=== PATIENT | female | born 1960 | race Caucasian/White ===

== ENCOUNTER 2020-11-02 09:08 | Day surgery (SDC) | payer OTHER ==
[2020-10-29 13:03] VITALS: BMI 20.7
[~2020-11-02 09:08] MED LIST: LACTATED RINGERS 1,000 ML IV SCH
[2020-11-02 09:29] VITALS: TEMP 98.4
[2020-11-02] MEDS ORDERED: LIDOCAINE 1% (10MG/ML) FOR IV START INTRADERMA ONE (09:29)
[2020-11-02] MEDS ORDERED: PROPOFOL 10 MG/ML 20 ML VIAL IV ONE (10:01)
--- NOTE | 2020-11-02 10:05 | P.GSHP ---
History of Present Illness H&P Date: 11/02/20 Chief Complaint: Colon cancer screening Patient here today for colonoscopy. No bowel complaints. She has not had a colonoscopy previously. No family history of colon cancer in first-degree relatives. She thinks her grandparent may have had colon cancer. Past Medical History Past Medical History: Hyperlipidemia History of Any Multi-Drug Resistant Organisms: None Reported Past Surgical History: Breast Surgery, Hysterectomy, Tonsillectomy Additional Past Surgical History / Comment(s): BILATERAL BREAST AUGMENTATION , RIGHT LEG- PINS AND JERI,SCREWS , RIGHT LEG -IRRITATING METAL REMOVED Past Anesthesia/Blood Transfusion Reactions: No Reported Reaction Smoking Status: Current every day smoker - Past Family History Mother Family Medical History: Cancer Additional Family Medical History / Comment(s): ESOPHAGEAL CANCER Father Family Medical History: Cancer Additional Family Medical History / Comment(s): LIVER CANCER Medications and Allergies Home Medications Medication Instructions Recorded Confirmed Type Atorvastatin [Lipitor] 80 mg PO HS 10/29/20 10/29/20 History Ergocalciferol (Vitamin D2) 1,250 mcg PO WE 10/29/20 10/29/20 History [Vitamin D2 (50,000 Iu)] Mirtazapine [Remeron] 15 mg PO HS 10/29/20 10/29/20 History Allergies Allergy/AdvReac Type Severity Reaction Status Date / Time No Known Allergies Allergy Verified 11/02/20 09:25 Surgical - Exam Vital Signs Temp Pulse Resp BP Pulse Ox 98.4 F 91 16 144/73 97 11/02/20 09:28 11/02/20 09:28 11/02/20 09:28 11/02/20 09:28 11/02/20 09:28 Physical exam: General: Well-developed, well-nourished HEENT: Normocephalic, sclerae nonicteric Abdomen: Nontender, nondistended Extremities: No edema Neuro: Alert and oriented Assessment and Plan (1) Colon cancer screening Narrative/Plan: Will proceed with colonoscopy Current Visit: Yes Status: Acute Code(s): Z12.11 - ENCOUNTER FOR SCREENING FOR MALIGNANT NEOPLASM OF COLON SNOMED Code(s): 946823831
--- NOTE | 2020-11-02 10:25 | P.PCN ---
Date of Procedure: 11/02/20 Procedure(s) Performed: PREOPERATIVE DIAGNOSIS: Colon cancer screening POSTOPERATIVE DIAGNOSIS: Normal exam PROCEDURE: Colonoscopy ANESTHESIA: MAC SURGEON: Danis Mojica M.D. SPECIMENS: Normal exam ENDOSCOPIC PROCEDURE: The patient was placed on the endoscopy table in the left decubitus position. The Olympus colonoscope was inserted into the anus and passed under direct visualization to the base of the cecum. The appendiceal orifice was visualized. From that point the scope was slowly withdrawn i nspecting all surfaces carefully. There were no neoplastic inflammatory or polypoid lesions throughout the cecum, ascending, transverse, descending, sigmoid and rectum. There was no visible diverticulosis noted. Digital rectal examination was normal. The patient was taken to the recovery room in stable condition per anesthesia guidelines. RECOMMENDATIONS: Resume diet. Follow-up colonoscopy 10 years.
[2020-11-02 10:43] VITALS: BP 122/84; PULSE 77; RESP 16
== END 2020-11-02 11:09 | disposition home or self-care (01) ==
LOC: ORWHC2ENDO 09:08
PROVIDERS: ATTEND Surgery
DX: Z12.11 Encounter for screening for malignant neoplasm of colon (principal); E78.5 Hyperlipidemia, unspecified; F17.200 Nicotine dependence, unspecified, uncomplicated; Z90.710 Acquired absence of both cervix and uterus; Z90.89 Acquired absence of other organs; Z98.890 Other specified postprocedural states; Z80.0 Family history of malignant neoplasm of digestive organs; Z79.899 Other long term (current) drug therapy
CPT/HCPCS: J2704; G0121

== ENCOUNTER 2021-01-03 19:26 | Emergency (ER) | payer OTHER ==
[2021-01-03 19:34] VITALS: TEMP 99.1
[2021-01-03] MEDS ORDERED: MORPHINE SULFATE 2 MG/ML SYRINGE IVP STA (19:40)
[2021-01-03] MEDS ORDERED: ALBUTEROL NEBULIZED 2.5 MG/3 ML INHALATION STA (19:40)
[2021-01-03] MEDS ORDERED: IPRATROPIUM 0.5 MG/2.5 ML NEBU INHALATION STA (19:40)
[2021-01-03] MEDS ORDERED: SODIUM CHLORIDE 0.9% 500 ML 500 ML IV ONE (19:40)
[2021-01-03] MEDS ORDERED: methylPREDNISolone SOD SUCCI 125 MG/2 ML VIAL IV STA (19:40)
--- NOTE | 2021-01-03 19:58 | ED ---
General Adult HPI - General Chief complaint: Shortness of Breath Stated complaint: Coughing, Diff Breathing Time Seen by Provider: 01/03/21 19:35 Source: patient, RN notes reviewed, old records reviewed Mode of arrival: wheelchair Limitations: no limitations - History of Present Illness Initial comments: 60-year-old female with approximately one month of cough and mild dyspnea. She had been prescribed antibiotics and an albuterol inhaler by her primary care physician. Symptoms have continued to worsen. She denies fever. She denies a central radiating chest pain. No leg swelling. No history of CAD, no history of COPD. She is a current smoker although she states she has been cutting back. - Related Data Home Medications Medication Instructions Recorded Confirmed Atorvastatin [Lipitor] 80 mg PO HS 10/29/20 10/29/20 Ergocalciferol (Vitamin D2) 1,250 mcg PO WE 10/29/20 10/29/20 [Vitamin D2 (50,000 Iu)] Mirtazapine [Remeron] 15 mg PO HS 10/29/20 10/29/20 Previous Rx's Medication Instructions Recorded Promethazine HCl/Codeine 5 ml PO Q6H PRN 3 Days #120 ml 01/03/21 [Promethazine-Codeine Syrup] predniSONE 50 mg PO DAILY #5 tab 01/03/21 Allergies Allergy/AdvReac Type Severity Reaction Status Date / Time No Known Allergies Allergy Verified 01/03/21 19:34 Review of Systems ROS Statement: Those systems with pertinent positive or pertinent negative responses have been documented in the HPI. ROS Other: All systems not noted in ROS Statement are negative. Past Medical History Past Medical History: Hyperlipidemia History of Any Multi-Drug Resistant Organisms: None Reported Past Surgical History: Breast Surgery, Hysterectomy, Tonsillectomy Additional Past Surgical History / Comment(s): BILATERAL BREAST AUGMENTATION , RIGHT LEG- PINS AND JERI,SCREWS , RIGHT LEG -IRRITATING METAL REMOVED Past Anesthesia/Blood Transfusion Reactions: No Reported Reaction Past Psychological History: Anxiety, Depression Smoking Status: Current every day smoker Past Alcohol Use History: None Reported Past Drug Use History: None Reported - Past Family History Mother Family Medical History: Cancer Additional Family Medical History / Comment(s): ESOPHAGEAL CANCER Father Family Medical History: Cancer Additional Family Medical History / Comment(s): LIVER CANCER General Exam Limitations: no limitations General appearance: alert, in no apparent distress Head exam: Present: atraumatic, normocephalic Eye exam: Present: normal appearance, PERRL ENT exam: Present: normal exam Neck exam: Present: normal inspection. Absent: tenderness, meningismus Respiratory exam: Present: wheezes, other (Bronchospastic cough) Cardiovascular Exam: Present: regular rate, normal rhythm GI/Abdominal exam: Present: soft. Absent: distended, tenderness, guarding Extremities exam: Present: normal inspection, normal capillary refill. Absent: pedal edema, calf tenderness Neurological exam: Present: alert, oriented X3, CN II-XII intact. Absent: motor sensory deficit Psychiatric exam: Present: normal affect, normal mood Skin exam: Present: warm, dry, intact. Absent: cyanosis, diaphoretic Course Vital Signs 01/03/21 01/03/21 01/03/21 19:31 21:02 21:17 Temperature 99.1 F Pulse Rate 106 H 80 84 Respiratory 20 18 18 Rate Blood Pressure 112/77 O2 Sat by Pulse 98 Oximetry Medical Decision Making - Medical Decision Making 60-year-old female history of tobacco use, presenting with cough. Patient has a bronchospastic cough and wheezing throughout. Chest x-ray is clear. She has normal laboratory testing including normal CBC, normal CMP. She does have a persistent cough, however hemodynamics are stable. I offered observation for treatment of chronic bronchitis and likely COPD patient declines. She prefers outpatient follow-up. She's given a short course of steroids. She has an albuterol inhaler. She's given a promethazine with codeine. - Lab Data Result diagrams: 01/03/21 19:47 01/03/21 19:47 Lab Results 01/03/21 01/03/21 01/03/21 Range/Units 19:47 19:47 19:47 WBC 8.5 (3.8-10.6) k/uL RBC 4.50 (3.80-5.40) m/uL Hgb 13.6 (11.4-16.0) gm/dL Hct 39.3 (34.0-46.0) % MCV 87.3 (80.0-100.0) fL MCH 30.2 (25.0-35.0) pg MCHC 34.6 (31.0-37.0) g/dL RDW 12.7 (11.5-15.5) % Plt Count 205 (150-450) k/uL MPV 7.7 Neutrophils % 81 % Lymphocytes % 11 % Monocytes % 5 % Eosinophils % 1 % Basophils % 1 % Neutrophils # 6.9 (1.3-7.7) k/uL Lymphocytes # 0.9 L (1.0-4.8) k/uL Monocytes # 0.4 (0-1.0) k/uL Eosinophils # 0.1 (0-0.7) k/uL Basophils # 0.1 (0-0.2) k/uL PT 9.8 (9.0-12.0) sec INR 0.9 (<1.2) APTT 21.6 L (22.0-30.0) sec Sodium 139 (137-145) mmol/L Potassium 3.7 (3.5-5.1) mmol/L Chloride 104 (98-107) mmol/L Carbon Dioxide 24 (22-30) mmol/L Anion Gap 11 mmol/L BUN 9 (7-17) mg/dL Creatinine 0.95 (0.52-1.04) mg/dL Est GFR (CKD-EPI)AfAm 76 (>60 ml/min/1.73 sqM) Est GFR (CKD-EPI)NonAf 66 (>60 ml/min/1.73 sqM) Glucose 117 H (74-99) mg/dL Calcium 9.5 (8.4-10.2) mg/dL Magnesium 2.0 (1.6-2.3) mg/dL Total Bilirubin 0.7 (0.2-1.3) mg/dL AST 31 (14-36) U/L ALT 14 (4-34) U/L Alkaline Phosphatase 177 H (38-126) U/L Troponin I (0.000-0.034) ng/mL Total Protein 7.4 (6.3-8.2) g/dL Albumin 4.7 (3.5-5.0) g/dL 01/03/21 Range/Units 19:47 WBC (3.8-10.6) k/uL RBC (3.80-5.40) m/uL Hgb (11.4-16.0) gm/dL Hct (34.0-46.0) % MCV (80.0-100.0) fL MCH (25.0-35.0) pg MCHC (31.0-37.0) g/dL RDW (11.5-15.5) % Plt Count (150-450) k/uL MPV Neutrophils % % Lymphocytes % % Monocytes % % Eosinophils % % Basophils % % Neutrophils # (1.3-7.7) k/uL Lymphocytes # (1.0-4.8) k/uL Monocytes # (0-1.0) k/uL Eosinophils # (0-0.7) k/uL Basophils # (0-0.2) k/uL PT (9.0-12.0) sec INR (<1.2) APTT (22.0-30.0) sec Sodium (137-145) mmol/L Potassium (3.5-5.1) mmol/L Chloride (98-107) mmol/L Carbon Dioxide (22-30) mmol/L Anion Gap mmol/L BUN (7-17) mg/dL Creatinine (0.52-1.04) mg/dL Est GFR (CKD-EPI)AfAm (>60 ml/min/1.73 sqM) Est GFR (CKD-EPI)NonAf (>60 ml/min/1.73 sqM) Glucose (74-99) mg/dL Calcium (8.4-10.2) mg/dL Magnesium (1.6-2.3) mg/dL Total Bilirubin (0.2-1.3) mg/dL AST (14-36) U/L ALT (4-34) U/L Alkaline Phosphatase (38-126) U/L Troponin I <0.012 (0.000-0.034) ng/mL Total Protein (6.3-8.2) g/dL Albumin (3.5-5.0) g/dL Disposition Clinical Impression: Acute bronchitis Disposition: HOME SELF-CARE Condition: Good Instructions (If sedation given, give patient instructions): Acute Bronchitis (ED) Prescriptions: predniSONE 50 mg PO DAILY #5 tab Promethazine HCl/Codeine [Promethazine-Codeine Syrup] 5 ml PO Q6H PRN 3 Days #120 ml PRN Reason: Cough Is patient prescribed a controlled substance at d/c from ED?: No Referrals: Enzo Kimbrough MD [Primary Care Provider] - 1-2 days Time of Disposition: 21:29
[2021-01-03 20:02] LABS: Basophils # (A) 0.1 k/uL (0-0.2); Basophils % (A) 1 %; Eosinophils # (A) 0.1 k/uL (0-0.7); Eosinophils % (A) 1 %; HCT 39.3 % (34.0-46.0); HGB 13.6 gm/dL (11.4-16.0); Lymphocytes # (A) 0.9 k/uL (1.0-4.8); Lymphocytes % (A) 11 %; MCH 30.2 pg (25.0-35.0); MCHC 34.6 g/dL (31.0-37.0); MCV 87.3 fL (80.0-100.0); Mean Platelet Volume 7.7; Monocytes # (A) 0.4 k/uL (0-1.0); Monocytes % (A) 5 %; Neutrophils # (A) 6.9 k/uL (1.3-7.7); Neutrophils % (A) 81 %; Platelet Count 205 k/uL (150-450); RDW 12.7 % (11.5-15.5); WBC 8.5 k/uL (3.8-10.6)
[2021-01-03 20:17] LABS: Albumin 4.7 g/dL (3.5-5.0); Calcium 9.5 mg/dL (8.4-10.2); Potassium 3.7 mmol/L (3.5-5.1); Total Bilirubin 0.7 mg/dL (0.2-1.3); Total Protein 7.4 g/dL (6.3-8.2)
--- NOTE | 2021-01-03 20:20 | XR ---
EXAMINATION TYPE: XR chest 2V DATE OF EXAM: 01/03/2021 COMPARISON: NONE HISTORY: Cough TECHNIQUE: 2 views FINDINGS: There is no heart failure nor confluent pneumonic infiltrate. Costophrenic angles are clear . There are no hilar masses. IMPRESSION: No active cardiopulmonary disease. Normal heart.
[2021-01-03 20:21] LABS: INR 0.9 (<1.2); Prothrombin Time 9.8 sec (9.0-12.0)
[2021-01-03 20:29] LABS: Partial Thromboplastin Time 21.6 sec (22.0-30.0)
[2021-01-03] MEDS ORDERED: ACET/COD 300 MG/30 MG STARTER PACK 6 TAB BTL PO STA (21:32)
[2021-01-03 21:41] VITALS: BP 142/80; PULSE 78; RESP 20
== END 2021-01-03 21:40 | disposition home or self-care (01) ==
LOC: EC 19:26
DX: J20.9 Acute bronchitis, unspecified (principal); E78.5 Hyperlipidemia, unspecified; F32.9 Major depressive disorder, single episode, unspecified; F41.9 Anxiety disorder, unspecified; F17.200 Nicotine dependence, unspecified, uncomplicated
CPT/HCPCS: 99285 ×2; 96374 ×2; 96375 ×2; 36415; 94640; 80053; 83735; 84484; 85025; 85610; 85730; 71046; J2930; J2270

== ENCOUNTER 2021-02-16 23:29 | Emergency (ER) | payer OTHER ==
[2021-02-16 23:56] VITALS: BP 138/87; PULSE 78; RESP 18; TEMP 98.5
[2021-02-17] MEDS ORDERED: ACET/COD 300 MG/30 MG STARTER PACK 6 TAB BTL PO STA (01:33)
[2021-02-17] MEDS ORDERED: ORPHENADRINE 30 MG/ML 2 ML VIAL IM STA (01:33)
[2021-02-17] MEDS ORDERED: KETOROLAC 15 MG/ML 1 ML VIAL IM STA (01:33)
--- NOTE | 2021-02-17 01:35 | ED ---
Back Pain HPI - General Chief Complaint: Back Pain/Injury Stated Complaint: back pain Time Seen by Provider: 02/17/21 00:35 Source: patient - History of Present Illness Initial Comments: 60-year-old female patient presents to the emergency department today for evaluation of right mid back pain. Patient states she's had the pain for the last month. States it feels like her back is spasming. States that she has seen her primary care physician and did receive a short course of [place] which did seem to help all she was taking it. States she started seeing a chiropractor earlier today and did have relief for a short period of time but then worsened again. Patient states she is unable to sleep tonight so she came in for further evaluation. States she did take [id number] ibuprofen without relief. She denies any radiation of the pain down her legs. Denies any numbness or tingling. Denies saddle anesthesia or loss of bowel or bladder control. Denies any hematuria, dysuria, urinary frequency, urinary urgency. States her pain is consistent with her usual back pain and has no new symptoms. - Related Data Home Medications Medication Instructions Recorded Confirmed Atorvastatin [Lipitor] 80 mg PO HS 10/29/20 10/29/20 Ergocalciferol (Vitamin D2) 1,250 mcg PO WE 10/29/20 10/29/20 [Vitamin D2 (50,000 Iu)] Mirtazapine [Remeron] 15 mg PO HS 10/29/20 10/29/20 Previous Rx's Medication Instructions Recorded Promethazine HCl/Codeine 5 ml PO Q6H PRN 3 Days #120 ml 01/03/21 [Promethazine-Codeine Syrup] predniSONE 50 mg PO DAILY #5 tab 01/03/21 Lidocaine 5% Patch [Lidoderm] 1 patch TOPICAL DAILY #30 patch 02/17/21 Naproxen [EC-Naprosyn] 500 mg PO BID PRN #30 tablet. 02/17/21 Orphenadrine [Norflex] 100 mg PO Q12H PRN #10 tablet.er 02/17/21 Allergies Allergy/AdvReac Type Severity Reaction Status Date / Time No Known Allergies Allergy Verified 02/16/21 23:56 Review of Systems ROS Statement: Those systems with pertinent positive or pertinent negative responses have been documented in the HPI. ROS Other: All systems not noted in ROS Statement are negative. Past Medical History Past Medical History: Hyperlipidemia History of Any Multi-Drug Resistant Organisms: None Reported Past Surgical History: Breast Surgery, Hysterectomy, Tonsillectomy Additional Past Surgical History / Comment(s): BILATERAL BREAST AUGMENTATION , RIGHT LEG- PINS AND JERI,SCREWS , RIGHT LEG -IRRITATING METAL REMOVED Past Anesthesia/Blood Transfusion Reactions: No Reported Reaction Past Psychological History: Anxiety, Depression Smoking Status: Current every day smoker Past Alcohol Use History: None Reported Past Drug Use History: None Reported - Past Family History Mother Family Medical History: Cancer Additional Family Medical History / Comment(s): ESOPHAGEAL CANCER Father Family Medical History: Cancer Additional Family Medical History / Comment(s): LIVER CANCER General Exam General appearance: alert, in no apparent distress, other (This is a well- developed, well-nourished adult female patient in no acute distress. Vital signs upon presentation are temperature 98.5F, pulse 78, respirations 18, blood pressure 138/87, pulse ox 99% on room air.) Respiratory exam: Present: normal lung sounds bilaterally. Absent: respiratory distress, wheezes, rales, rhonchi, stridor Cardiovascular Exam: Present: regular rate, normal rhythm, normal heart sounds. Absent: systolic murmur, diastolic murmur, rubs, gallop, clicks GI/Abdominal exam: Present: soft, normal bowel sounds. Absent: distended, tenderness, guarding, rebound, rigid Extremities exam: Present: normal inspection, full ROM, normal capillary refill, other (Skin to the lower extremities is pink, warm, dry. Cap refill less than 3 seconds. Pedal and posttibial pulses are 2+ and equal bilaterally.). Absent: tenderness, pedal edema, joint swelling, calf tenderness Back exam: Present: normal inspection, muscle spasm (Right lower thoracic), paraspinal tenderness (Right lower thoracic) Neurological exam: Present: alert, oriented X3, CN II-XII intact Psychiatric exam: Present: normal affect, normal mood Skin exam: Present: warm, dry, intact, normal color. Absent: rash Course Vital Signs 02/16/21 23:51 Temperature 98.5 F Pulse Rate 78 Respiratory 18 Rate Blood Pressure 138/87 O2 Sat by Pulse 99 Oximetry Medical Decision Making - Medical Decision Making 60-year-old female patient presents to the emergency department today for evaluation of right mid back pain. Physical examination did reveal right lower thoracic paraspinal tenderness consistent with muscle spasm. She'll be started on Norflex and naproxen. Given Lidoderm patch. She'll be discharged follow-up with her primary care physician for recheck in 1-2 days. She is urged to discuss physical therapy referral. Return parameters discussed in detail. She verbalizes understanding and agrees with this plan. My attending is Dr. Mendez. Disposition Clinical Impression: Muscle spasm, Back pain Disposition: HOME SELF-CARE Condition: Good Instructions (If sedation given, give patient instructions): Muscle Spasm (ED), Back Pain (ED) Additional Instructions: Take medications as directed. Apply warm moist heat over the area 20 minutes at a time at least 4 times daily. Consider physical therapy, getting referral from your primary care physician. Return to the emergency department for any new, worsening, or concerning symptoms. Prescriptions: Naproxen [EC-Naprosyn] 500 mg PO BID PRN #30 tablet. PRN Reason: Pain Lidocaine 5% Patch [Lidoderm] 1 patch TOPICAL DAILY #30 patch Orphenadrine [Norflex] 100 mg PO Q12H PRN #10 tablet.er PRN Reason: Back pain Is patient prescribed a controlled substance at d/c from ED?: No Referrals: Enzo Kimbrough MD [Primary Care Provider] - 1-2 days Time of Disposition: 01:35
== END 2021-02-17 01:51 | disposition home or self-care (01) ==
LOC: EC 23:29
DX: M62.830 Muscle spasm of back (principal); M54.9 Dorsalgia, unspecified; F17.200 Nicotine dependence, unspecified, uncomplicated; E78.5 Hyperlipidemia, unspecified; Z79.899 Other long term (current) drug therapy
CPT/HCPCS: 99283; 96372; J2360; J1885

== ENCOUNTER → 2021-06-30 | Outpatient (CLI) | payer OTHER ==
--- NOTE | 2021-06-30 08:27 | CT ---
EXAMINATION TYPE: CT chest wo/w con DATE OF EXAM: 06/30/2021 COMPARISON: None HISTORY: Chronic cough, Wheezing CT DLP: 628 mGycm Automated exposure control for dose reduction was used. CONTRAST: CT scan of the chest is performed without and with IV Contrast, patient injected with 100 ml mL of Is ovue 300. FINDINGS: LUNGS: Groundglass density right upper lobe and left lower lobe may reflect inflammatory/postinflamma tory change. No focal consolidation. No pleural effusion. No evidence for volume loss. MEDIASTINUM: There are no greater than 1 cm hilar or mediastinal lymph nodes. No pericardial effusi on is seen. Thoracic aorta is of normal caliber. The heart is not enlarged. UPPER ABDOMEN: No significant abnormality appreciated. OTHER: No additional significant abnormality is seen. IMPRESSION: Groundglass density right upper lobe and left lower lobe may reflect inflammatory/postinflammatory ch rafael. No focal consolidation.
== END | disposition home or self-care (01) ==
LOC: RADCTMAIN 07:23
PROVIDERS: ATTEND Family Medicine
DX: R05.3 Chronic cough (principal)
CPT/HCPCS: 71270; Q9967

== ENCOUNTER → 2022-02-02 | Outpatient (CLI) | payer OTHER ==
--- NOTE | 2022-02-07 08:09 | MM ---
Reason for Exam: Screening (asymptomatic). Last mammogram was performed 1 year(s) and 6 month(s) ago. Patient History: 2000, Bilateral Implants. Risk Values: Opal 5 year model risk: 0.9%. NCI Lifetime model risk: 4.9%. Tissue Density: The breast tissue is extremely dense which could obscure a lesion on mammography. Findings: Analyzed By CAD. There is no suspicious group of microcalcifications or new suspicious mass in either breast. Bilateral saline implants are intact. Overall Assessment: Benign, BI-RAD 2 Management: Screening Mammogram of both breasts in 1 year. A clinical breast exam by your physician is recommended on an annual basis and results should be correlated with mammographic findings. Electronically signed and approved by: Louis Gallegos M.D. Radiologis
== END | disposition home or self-care (01) ==
LOC: RADMAMWWP 08:10
PROVIDERS: ATTEND Family Medicine
DX: Z12.31 Encounter for screening mammogram for malignant neoplasm of breast (principal)
CPT/HCPCS: 77067

== ENCOUNTER → 2023-08-06 | Outpatient (CLI) | payer OTHER ==
--- NOTE | 2023-08-07 08:48 | MM ---
Reason for Exam: Screening (asymptomatic). Last mammogram was performed 1 year(s) and 6 month(s) ago. Patient History: Menarche at age 14. First Full-Term at age 29. Left ovary removed at age 39. Right ovary removed at age 39. Hysterectomy at age 39. Patient has history of breast feeding. Estrogen and Progesterone for 6 months. 2000, Bilateral Implants. Risk Values: Opal 5 year model risk: 1.6%. NCI Lifetime model risk: 7.9%. Prior Study Comparison: 08/27/2020 Bilateral MG screening mammo implant/CAD, [facility]. 02/02/2022 Bilateral MG screening mammo implant/CAD, [facility]. Tissue Density: The breast tissue is extremely dense which could obscure a lesion on mammography. Findings: Analyzed By CAD. There is a loosely grouped calcifications in the upper outer aspect left breast. No dominant mass or architectural distortion. Bilateral breast implants surgery. Stable benign-appearing calcifications bilaterally. Overall Assessment: Incomplete: need additional imaging evaluation, BI-RAD 0 Management: Special View Mammogram of the left breast. . Patient should continue monthly self-breast exams. A clinical breast exam by your physician is recommended on an annual basis. This exam should not preclude additional follow-up of suspicious palpable abnormalities. Note on Opal scores and lifetime risk: 1. A Opal score greater than 3% is considered moderate risk. If this is the case, consider specialist referral to assess eligibility for a risk reducing agent. 2. If overall lifetime risk for the development of breast cancer is 20% or higher, the patient may qualify for future screening with alternating mammogram and breast MRI. Electronically signed and approved by: Shamar Herron M.D. Radiologis
== END | disposition home or self-care (01) ==
LOC: RADMAMWWP 09:45
PROVIDERS: ATTEND Family Medicine
DX: Z12.31 Encounter for screening mammogram for malignant neoplasm of breast (principal)
CPT/HCPCS: 77067

== ENCOUNTER → 2023-08-13 | Outpatient (CLI) | payer OTHER ==
--- NOTE | 2023-08-13 14:09 | MM ---
Reason for Exam: Additional evaluation requested from abnormal screening. Last screening mammogram was performed less than 1 month ago. Patient History: Menarche at age 14. First Full-Term at age 29. Left ovary removed at age 39. Right ovary removed at age 39. Hysterectomy at age 39. Postmenopausal. Patient has history of breast feeding. Estrogen and Progesterone for 6 months. 2000, Bilateral Implants. Risk Values: Opal 5 year model risk: 1.6%. NCI Lifetime model risk: 7.9%. Prior Study Comparison: 08/27/2020 Bilateral MG screening mammo implant/CAD, [facility]. 02/02/2022 Bilateral MG screening mammo implant/CAD, [facility]. 08/06/2023 Bilateral MG screening mammo implant/CAD, [facility]. Tissue Density: Left: The breast tissue is extremely dense which could obscure a lesion on mammography. Findings: Analyzed By CAD. There are small grouped heterogeneous calcifications at the 3:00 position left breast middle depth. These are indeterminate. Needle localization with excision can be performed as these would not be amenable to stereotactic biopsy. Some benign milk of calcium is present in the upper outer quadrant. Overall Assessment: Suspicious, BI-RAD 4 Management: Needle Localization of the left breast. Surgical Consultation of the left breast. Electronically signed and approved by: oHda Bliss M.D. Radiologist
== END | disposition home or self-care (01) ==
LOC: RADMAMWWP 12:58
PROVIDERS: ATTEND Family Medicine
DX: R92.342 Mammographic extreme density, left breast (principal); R92.1 Mammographic calcification found on diagnostic imaging of breast; Z78.0 Asymptomatic menopausal state; Z98.82 Breast implant status
CPT/HCPCS: 77061; 77065

== ENCOUNTER 2023-09-10 06:12 | Day surgery (SDC) | payer OTHER ==
[2023-09-05 09:53] VITALS: BMI 18.3
[2023-09-10] MEDS ORDERED: LIDOCAINE 1% (10MG/ML) FOR IV START INTRADERMA PRN (07:31)
[2023-09-10] MEDS ORDERED: HYDROmorphone 0.5 MG/0.5 ML SYRINGE IVP PRN (07:31)
[2023-09-10] MEDS ORDERED: MIDAZOLAM 2 MG/2 ML VIAL IV PRN (07:31)
[2023-09-10] MEDS: ALPRAZolam 0.5 MG TAB ONE (07:32)
[2023-09-10] MEDS: LACTATED RINGERS 1,000 ML IV SCH (07:32)
[2023-09-10] MEDS ORDERED: ACETAMINOPHEN TAB 500 MG TAB ONE ×2 (07:33→09:00)
[2023-09-10] MEDS: LIDOCAINE 1% INJ 10MG/ML (20 ML MDV) SQ ONE (08:21)
[2023-09-10] MEDS: ONDANSETRON 4 MG/2 ML VIAL IVP ONE (08:52)
[2023-09-10] MEDS: DEXAMETHASONE SOD PHOSPHATE 4 MG/ML 1 ML VIAL IV ONE (08:53)
[2023-09-10] MEDS: HEPARIN SODIUM,PORCINE 5,000 UNIT/ML 1 ML VIAL SQ ONE (09:04)
[2023-09-10] MEDS: ACETAMINOPHEN TAB 500 MG TAB PO ONE (09:05)
[2023-09-10] MEDS ORDERED: PROPOFOL 10 MG/ML 20 ML VIAL IV ONE (09:17)
[2023-09-10] MEDS ORDERED: PHENYLEPHRINE 10 MG/ML VIAL ONE (09:17)
[2023-09-10] MEDS ORDERED: LIDOCAINE 1% INJ 10MG/ML (20 ML MDV) ONE (09:17)
[2023-09-10] MEDS ORDERED: ePHEDrine 50 MG/ML 1 ML VIAL ONE (09:17)
[2023-09-10] MEDS: BUPIVACAINE (PF) 0.25% 30 ML VIAL SQ ONE (09:43)
[2023-09-10] MEDS ORDERED: NALOXONE 0.4 MG/ML 1 ML VIAL IV PRN (10:16)
[2023-09-10] MEDS ORDERED: HYDROcodone/APAP 5-325MG 1 EACH TAB PO PRN (10:16)
--- NOTE | 2023-09-10 10:18 | P.OP ---
Date of Procedure: 09/10/23 Procedure(s) Performed: PREOPERATIVE DIAGNOSIS: Abnormal left mammogram POSTOPERATIVE DIAGNOSIS: Same PROCEDURE: Left breast wire localization biopsy SURGEON: Galina EBL: Minimal ANESTHESIA: General plus local COMPLICATIONS: None OPERATIVE PROCEDURE: Patient was placed on the operating room table in the supi ne position. The patient's breast was prepped and draped in usual sterile fashion. A curvilinear incision was made adjacent to the areola laterally. The wire was then brought out through this incision.. I followed the wire down into the breast tissue. The breast tissue around the tip of the wire was fully excised using electrocautery. The specimen was sent for specimen radiogram. The clip was present within the specimen. The subcutaneous tissues were inspected. No bleeding was seen. The subcutaneous tissues were closed using 3- 0 Vicryl sutures. The skin was closed using a running 4-0 Monocryl stitch. Skin glue and sterile dressings were applied. DISPOSITION: Stable to recovery room
[2023-09-10 10:36] VITALS: TEMP 98.2
[2023-09-10 11:11] VITALS: RESP 16
[2023-09-10 11:45] VITALS: BP 102/62; PULSE 79
--- NOTE | 2023-09-17 13:35 | MM ---
Risk Values: Opal 5 year model risk: 1.6%. NCI Lifetime model risk: 7.9%. Pathology Description: Location: lower outer quadrant, middle. Approach: Lateral to Medial Needle Type: 7 cm Kopan patient has bilat saline implants The procedure of needle localization with wire placement and than surgical excision was explained to the patient. Benefits, alternatives, and risks were discussed. An informed consent was then obtained. The small grouped calcifications 3 to 4:00 position left breast are identified and targeted for needle localization. Particular care is made given the patient's underlying saline implant. The shortest pathway for procedure was chosen. Shortest pathway was a lateral approach. The overlying skin was prepped and draped in usual sterile fashion. Lidocaine was used as anesthetic into the skin and subcutaneous tissue up to the level of area of concern. A 7 cm Kopan's needle was used. It was placed via a lateral approach under mammographic guidance. Subsequent 90 degrees mammogram show the needle to be in satisfactory position relative to the targeted area. At this point, wire was placed and the needle was withdrawn. The wire was fixed to patient's skin. Images were marked for surgeon. Care was taken to preserve the patient's underlying saline implant. The patient tolerated the procedure well without any immediate complication. The patient was kept in the radiology department for short stay after the procedure and then taken to surgery for surgical excision. Targeted calcifications and wire are identified in specimen mammogram. The patient was kept in hospital for short stay after the procedure and then discharged home in stable condition. IMPRESSION: Successful, uncomplicated needle localization with wire placement and surgical excision of suspicious group of calcifications in the 3 to 4:00 position left breast, full pathology results to follow. Pathology Results: Result: Benign, Fibrocystic change. LEFT BREAST, NEEDLE LOCALIZATION EXCISION: Benign breast with fibrocystic changes including dense stromal fibrosis. Overall Assessment: Benign Management: Diagnostic Mammogram of the left breast in 6 months. Electronically signed and approved by: Hoda Bliss M.D. Radiologist
== END 2023-09-10 11:41 | disposition home or self-care (01) ==
LOC: OR 06:12
PROVIDERS: ATTEND Surgery
DX: N60.12 Diffuse cystic mastopathy of left breast (principal)
CPT/HCPCS: 88305; 76098; 19281; C1819; J1644; J1100; J2405; J0690; J2001; J2704; J2371; J0665

== ENCOUNTER → 2023-09-28 | Outpatient (CLI) | payer OTHER ==
--- NOTE | 2023-10-01 11:08 | CT ---
EXAMINATION TYPE: CT abdomen wo/w con CT DLP: 379.1 mGycm, Automated exposure control for dose reduction was used. DATE OF EXAM: 09/28/2023 9:23 AM COMPARISON: None. CLINICAL INDICATION:Female, 62 years old with history of K59.00 CONSTIPATION R10.13 EPI PAIN; bloatin g, constipation TECHNIQUE: Axial CT abdomen wo/w con;Sagittal and coronal reformats were created on a separate works tation. Contrast used:100 mL of Isovue 300 without and with IV Contrast, (none if empty) Oral contrast used: with Oral Contrast (none if empty) FINDINGS: LOWER CHEST: Unremarkable ABDOMEN LIVER: Unremarkable GALLBLADDER AND BILE DUCTS: Unremarkable. PANCREAS: Unremarkable. SPLEEN: Unremarkable. ADRENAL GLANDS: Unremarkable. KIDNEYS AND URETERS: No evidence of hydronephrosis or renal calculus. The ureters are unremarkable. STOMACH AND BOWEL: Stomach and duodenum are unremarkable. Prominent fecal pattern consistent with h istory of constipation. No evidence of bowel obstruction. PERITONEUM/RETROPERITONEUM: No evidence of pneumoperitoneum or free fluid. VASCULATURE: No evidence of aortic aneurysm. MUSCULOSKELETAL: No acute osseous abnormalities LYMPH NODES: No gross evidence for lymphadenopathy. SOFT TISSUE/ABDOMINAL WALL: Unremarkable IMPRESSION: 1. Prominent fecal pattern consistent with history of constipation.
== END | disposition home or self-care (01) ==
LOC: RADCTMAIN 08:22
PROVIDERS: ATTEND Family Medicine
DX: K59.00 Constipation, unspecified (principal); R10.13 Epigastric pain
CPT/HCPCS: 74170; Q9967

== ENCOUNTER → 2024-12-26 | Outpatient (CLI) | payer OTHER ==
--- NOTE | 2024-12-29 09:05 | CTL ---
EXAMINATION TYPE: CT Low Dose Lung DATE OF EXAM: 12/26/2024 11:10 AM COMPARISON: None. SCREENING VISIT: Initial CT DIAGNOSTIC QUALITY: Satisfactory CLINICAL INDICATION: Female, 64 years old with history of Z12.2 LUNG CA SCR F17.210 CURRENT SMOKER, C urrent smoker 1 ppd x 51 years hx COPD, Lung cancer screening, History of tobacco use. TECHNIQUE: Low dose computed tomography scan was performed through the chest at 1 mm thick sections a nd reconstructed images in the coronal plane at 1 mm thick sections. Contrast used: mL of , (none if empty) Oral contrast used: (none if empty) CT DLP: 90.40 mGycm, Automated exposure control for dose reduction was used. CT CTDI: 2.4 mGy, Automated exposure control for dose reduction was used. FINDINGS: LUNG NODULES: Present, detailed below: 1. There is a 0.5 cm density within the lateral right apex. Series 4 image 27. Enlarged from compari son. 2. There may be some pleural thickening along the medial right the proximal approximately 0.7 cm. Ser ies 4 image 28 3. There is a 0.3 cm nodule lateral left upper lung field. Series 4 image 36. 4. There is a 0.5 cm nodule peripheral right upper lung field. Series 4 image 49. May be enlarged. 5. There is a 0.6 cm nodule posterior right upper lung field. Series 4 image 64. New from comparison . 6. There is a 0.4 cm density adjacent to the pleural margin anteriorly lobe. Series 4 image 213. LUNGS: COPD: Severity: Mild Fibrosis: Severity: None Lymph nodes: None Other findings: None RIGHT PLEURAL SPACE: Effusion: None Calcification: None Thickening: None Pneumothorax: None LEFT PLEURAL SPACE: Effusion: None Calcification: None Thickening: None Pneumothorax: None HEART: Other: Ascending thoracic aorta at the level the main pulmonary artery measures 3.2 cm. The main pul monary artery at the bifurcation measures 2.1 cm. Heart Size: Normal Coronary calcification: Mild coronary artery calcifications present. Pericardial effusion: None OTHER FINDINGS: Upper abdomen: Normal Bony thorax: Normal Supraclavicular region: Normal Bilateral breast prostheses are evident. IMPRESSION: Suspicious nodules right lung. FOLLOW UP CT CHEST RECOMMENDATION: Nodules may be below the reliable threshold of detectability by PE T CT. Short-term follow-up low-dose CT chest in 3 months or PET/CT. CT LUNG RAD: Lung-Rad 4A [facility], Workstation: [id number], 12/29/2024 9:03 AM
== END | disposition home or self-care (01) ==
LOC: RADCTMAIN 10:40
PROVIDERS: ATTEND Family Medicine
DX: Z12.2 Encounter for screening for malignant neoplasm of respiratory organs (principal); F17.210 Nicotine dependence, cigarettes, uncomplicated
CPT/HCPCS: 71271